=== PATIENT | female | born 1985 | race Caucasian/White ===

== ENCOUNTER 2017-03-26 13:54 | Emergency (ER) | payer OTHER ==
[2017-03-26 14:02] VITALS: BP 103/75; PULSE 76; RESP 16; TEMP 97.9; O2SAT 97
[2017-03-26] MEDS ORDERED: SODIUM CHLOR 0.9% 1000 ML INJ 1,000 ML IV ONE (14:15)
[2017-03-26] MEDS ORDERED: KETOROLAC TROMETHAMINE 30 MG/ML (IVP) VIAL IV PUSH ONE (14:15)
--- NOTE | 2017-03-26 14:20 | PD ---
HPI Chief Complaint: GI Complaint Time Seen by Provider: 14:07 Travel History International Travel<30 days: No Contact w/Intl Traveler<30days: No Traveled to known affect area: No History of Present Illness HPI This 31-year-old female says she been having some right-sided abdominal pain off and on for the last couple of days. She describes it as a dull aching pain. Seems greatest in the right flank area and is also some right upper quadrant discomfort. She does not recall having pain like this before. She has not had any dysuria. She has not had fever or chills. She had a baby about a year ago and is currently breast-feeding. She says her appetite has been diminished. She is not aware of fever. She has had a loss of appetite. She feels like her abdomen is distended. Mother has history of kidney stones and cholecystectomy. PFSH Past Medical History ?: Not LMP: IUD/POST / Social History Tobacco Use: No Allergies-Medications (Allergen,Severity, Reaction): Coded Allergies: No Known Allergies (Unverified , 03/26/17) Review of Systems General / Constitutional: No: Fever, Chills Eyes: No: Diploplia, Blurred Vision HENT: No: Headaches, Vertigo Cardiovascular: No: Chest Pain or Discomfort Respiratory: No: Cough, Shortness of Breath Gastrointestinal: Positive: Abdominal Pain, Loss of Appetite Genitourinary: Positive: Flank Pain Musculoskeletal: No: Myalgias, Arthralgias Skin: No Rash, No Itching Neurologic: No: Weakness Endocrine: No: Cold Intolerance Hematologic/Lymphatic: No: Easy Bruising Physical Exam Narrative GENERAL: Well-developed female SKIN: Focused skin assessment warm/dry. HEAD: Atraumatic. Normocephalic. EYES: Pupils equal and round. No scleral icterus. No injection or drainage. ENT: No nasal bleeding or discharge. Mucous membranes pink and moist. NECK: Trachea midline. No JVD. CARDIOVASCULAR: Regular rate and rhythm. No murmur appreciated. RESPIRATORY: No accessory muscle use. Clear to auscultation. Breath sounds equal bilaterally. GASTROINTESTINAL: Abdomen soft, there is some right upper quadrant tenderness, mild distention. Hepatic and splenic margins not palpable. Her umbilicus is quite tender There is some right CVA tenderness MUSCULOSKELETAL: No obvious deformities. No clubbing. No cyanosis. No edema. NEUROLOGICAL: Awake and alert. No obvious cranial nerve deficits. Motor grossly within normal limits. Normal speech. PSYCHIATRIC: Appropriate mood and affect; insight and judgment normal. Data Data Last Documented VS Vital Signs Date Time Temp Pulse Resp B/P (MAP) Pulse Ox O2 Delivery O2 Flow Rate FiO2 03/26/17 14:02 97.9 76 16 103/75 (84) 97 Orders Orders Complete Blood Count With Diff (03/26/17 14:14) Comprehensive Metabolic Panel (03/26/17 14:14) Lipase (03/26/17 14:14) Urinalysis - C+S If Indicated (03/26/17 14:14) Ed Urine Pregnancytest Poc (03/26/17 14:14) Sodium Chlor 0.9% 1000 Ml Inj (Ns 1000 M (03/26/17 14:15) Ketorolac Inj (Toradol Inj) (03/26/17 14:15) Urine Culture (03/26/17 14:30) Ceftriaxone Inj (Rocephin Inj) (03/26/17 15:15) Us Abdomen Gallbladder (03/26/17 15:13) Labs Laboratory Tests Test 03/26/17 14:30 03/26/17 14:50 Urine Collection Type CLEAN CATCH Urine Color STRAW Urine Turbidity CLEAR Urine pH 7.0 Urine Specific Mary [place] 1.005 Urine Protein NEG mg/dL Urine Glucose (UA) NEG mg/dL Urine Ketones NEG mg/dL Urine Occult Blood NEG Urine Nitrite NEG Urine Bilirubin NEG Urine Leukocyte Esterase LARGE Urine WBC 15-19 /hpf Urine Squamous Epithelial Cells 6-8 /hpf Urine Bacteria MANY /hpf Microscopic Urinalysis Comment CULTURE INDICATED Urine Collection Time 1430 White Blood Count 6.4 TH/MM3 Red Blood Count 4.62 MIL/MM3 Hemoglobin 13.1 GM/DL Hematocrit 39.5 % Mean Corpuscular Volume 85.7 FL Mean Corpuscular Hemoglobin 28.5 PG Mean Corpuscular Hemoglobin Concent 33.2 % Red Cell Distribution Width 12.1 % Platelet Count 232 TH/MM3 Mean Platelet Volume 8.1 FL Neutrophils (%) (Auto) 58.5 % Lymphocytes (%) (Auto) 31.9 % Monocytes (%) (Auto) 6.2 % Eosinophils (%) (Auto) 2.3 % Basophils (%) (Auto) 1.1 % Neutrophils # (Auto) 3.7 TH/MM3 Lymphocytes # (Auto) 2.1 TH/MM3 Monocytes # (Auto) 0.4 TH/MM3 Eosinophils # (Auto) 0.1 TH/MM3 Basophils # (Auto) 0.1 TH/MM3 CBC Comment DIFF FINAL Differential Comment Blood Urea Nitrogen 13 MG/DL Creatinine 0.68 MG/DL Random Glucose 69 MG/DL Total Protein 7.3 GM/DL Albumin 3.5 GM/DL Calcium Level 8.7 MG/DL Alkaline Phosphatase 114 U/L Aspartate Amino Transf (AST/SGOT) 17 U/L Alanine Aminotransferase (ALT/SGPT) 22 U/L Total Bilirubin 0.5 MG/DL Sodium Level 140 MEQ/L Potassium Level 3.6 MEQ/L Chloride Level 106 MEQ/L Carbon Dioxide Level 24.8 MEQ/L Anion Gap 9 MEQ/L Estimat Glomerular Filtration Rate 100 ML/MIN Lipase 86 U/L MDM Medical Decision Making Medical Screen Exam Complete: Yes Emergency Medical Condition: Yes Medical Record Reviewed: Yes Differential Diagnosis Differential includes cholelithiasis, cholecystitis, UTI, renal colic Narrative Course Her hemoglobin is 13 with a white count of 6.4. Urinalysis shows large leukocyte esterase with 15-19 white cells. This is consistent with urinary tract infection though the patient is not having symptoms of frequency or dysuria. Patient is complaining of some bloating and right upper quadrant and flank pain so I am going to order a ultrasound to assess for possible biliary disease. She will be given Rocephin for her urinary tract infection Diagnosis Primary Impression: Urinary tract infection Qualified Codes: N39.0 - Urinary tract infection, site not specified Chivo Mensah MD Mar 26, 2017 14:20
[2017-03-26 14:58] LABS: AUTOMATED NEUTROPHIL # 3.7 TH/MM3 (1.8-7.7); BASOPHIL # 0.1 TH/MM3 (0-0.2); BASOPHIL % 1.1 % (0.0-2.0); EOSINOPHIL # 0.1 TH/MM3 (0-0.4); EOSINOPHIL % 2.3 % (0.0-4.0); HEMATOCRIT 39.5 % (35.0-46.0); HEMOGLOBIN 13.1 GM/DL (11.6-15.3); LYMPH % 31.9 % (9.0-44.0); LYMPHOCYTE # 2.1 TH/MM3 (1.0-4.8); MEAN CELL VOLUME 85.7 FL (80.0-100.0); MEAN CORPUSCULAR HEMOGLOBIN 28.5 PG (27.0-34.0); MEAN CORPUSCULAR HGB CONC 33.2 % (32.0-36.0); MEAN PLATELET VOLUME 8.1 FL (7.0-11.0); MONO % 6.2 % (0.0-8.0); MONOCYTE # 0.4 TH/MM3 (0-0.9); NEUT % 58.5 % (16.0-70.0); PLATELET COUNT 232 TH/MM3 (150-450); RED BLOOD COUNT 4.62 MIL/MM3 (4.00-5.30); RED CELL DISTRIBUTION WIDTH 12.1 % (11.6-17.2); WHITE BLOOD COUNT 6.4 TH/MM3 (4.0-11.0)
[2017-03-26 15:01] LABS: BILIRUBIN, URINE NEG (NEG); BLOOD, URINE NEG (NEG); GLUCOSE,URINE NEG (NEG); KETONE, URINE NEG (NEG); NITRITE,URINE NEG (NEG); URINE LEUKOCYTE ESTERASE LARGE (NEG)
[2017-03-26 15:02] LABS: URINE COLOR STRAW (YELLW/STRAW)
[2017-03-26 15:05] LABS: CHLORIDE 106 MEQ/L (98-107); SODIUM (NA) 140 MEQ/L (136-145)
[2017-03-26 15:06] LABS: WBC, URINE 15-19 /hpf (0-5)
[2017-03-26 15:07] LABS: BACTERIA, URINE MANY /hpf
[2017-03-26 15:09] LABS: ALBUMIN 3.5 GM/DL (3.4-5.0); BICARBONATE 24.8 MEQ/L (21.0-32.0); BLOOD UREA NITROGEN 13 MG/DL (7-18); CALCIUM 8.7 MG/DL (8.5-10.1); GLUCOSE,RANDOM 69 MG/DL (74-106); LIPASE 86 U/L (73-393)
[2017-03-26 15:12] LABS: ALT (GPT) 22 U/L (10-53); AST (GOT) 17 U/L (15-37); CREATININE 0.68 MG/DL (0.50-1.00); GLOMERULAR FILTRATION RATE 100 ML/MIN (>89)
[2017-03-26 15:14] LABS: TOTAL BILIRUBIN ADULT 0.5 MG/DL (0.2-1.0); TOTAL PROTEIN 7.3 GM/DL (6.4-8.2)
[2017-03-26 15:15] LABS: ALKALINE PHOSPHATASE 114 U/L (45-117)
[2017-03-26] MEDS ORDERED: cefTRIAXone INJ 1,000 MG in SODIUM CHLORIDE 0.9% INJ 100 ML IV ONE (15:15)
[2017-03-26 15:56] VITALS: BP 103/64; PULSE 69; RESP 20; O2SAT 99
--- NOTE | 2017-03-26 16:30 | RADRPT ---
EXAM DATE/TIME: 03/26/2017 16:01 [facility] COMPARISON: No previous studies available for comparison. INDICATIONS : Right upper quadrant pain. MEDICAL HISTORY : Right upper quadrant pain. SURGICAL HISTORY : IUD placement. Laparoscopic pelvic surgery. ENCOUNTER: Initial ACUITY: 1 day PAIN SCORE: 7/10 LOCATION: Right upper quadrant MEASUREMENTS: LIVER: 15.5 cm length COMMON DUCT: 3 mm RIGHT KIDNEY: 10.2 x 4.5 x 3.8 cm FINDINGS: The gallbladder is intact without any evidence for gallstones, gallbladder wall thickening, or perich olecystic fluid. The visualized liver, head of the pancreas, and right kidney appear grossly intact for technique. CONCLUSION: Unremarkable study. Carlton Cortez MD on March 26, 2017 at 16:28 Board Certified Radiologist. This report was verified electronically.
--- NOTE | 2017-03-26 16:38 | PD ---
Data Data Last Documented VS Vital Signs Date Time Temp Pulse Resp B/P (MAP) Pulse Ox O2 Delivery O2 Flow Rate FiO2 03/26/17 17:00 03/26/17 15:56 69 20 99 03/26/17 14:02 97.9 Orders Orders Complete Blood Count With Diff (03/26/17 14:14) Comprehensive Metabolic Panel (03/26/17 14:14) Lipase (03/26/17 14:14) Urinalysis - C+S If Indicated (03/26/17 14:14) Ed Urine Pregnancytest Poc (03/26/17 14:14) Sodium Chlor 0.9% 1000 Ml Inj (Ns 1000 M (03/26/17 14:15) Ketorolac Inj (Toradol Inj) (03/26/17 14:15) Urine Culture (03/26/17 14:30) Ceftriaxone Inj (Rocephin Inj) (03/26/17 15:15) Us Abdomen Gallbladder (03/26/17 15:13) Ed Discharge Order (03/26/17 16:48) Labs Laboratory Tests Test 03/26/17 14:30 03/26/17 14:50 Urine Collection Type CLEAN CATCH Urine Color STRAW Urine Turbidity CLEAR Urine pH 7.0 Urine Specific Winnie 1.005 Urine Protein NEG mg/dL Urine Glucose (UA) NEG mg/dL Urine Ketones NEG mg/dL Urine Occult Blood NEG Urine Nitrite NEG Urine Bilirubin NEG Urine Leukocyte Esterase LARGE Urine WBC 15-19 /hpf Urine Squamous Epithelial Cells 6-8 /hpf Urine Bacteria MANY /hpf Microscopic Urinalysis Comment CULTURE INDICATED Urine Collection Time 1430 White Blood Count 6.4 TH/MM3 Red Blood Count 4.62 MIL/MM3 Hemoglobin 13.1 GM/DL Hematocrit 39.5 % Mean Corpuscular Volume 85.7 FL Mean Corpuscular Hemoglobin 28.5 PG Mean Corpuscular Hemoglobin Concent 33.2 % Red Cell Distribution Width 12.1 % Platelet Count 232 TH/MM3 Mean Platelet Volume 8.1 FL Neutrophils (%) (Auto) 58.5 % Lymphocytes (%) (Auto) 31.9 % Monocytes (%) (Auto) 6.2 % Eosinophils (%) (Auto) 2.3 % Basophils (%) (Auto) 1.1 % Neutrophils # (Auto) 3.7 TH/MM3 Lymphocytes # (Auto) 2.1 TH/MM3 Monocytes # (Auto) 0.4 TH/MM3 Eosinophils # (Auto) 0.1 TH/MM3 Basophils # (Auto) 0.1 TH/MM3 CBC Comment DIFF FINAL Differential Comment Blood Urea Nitrogen 13 MG/DL Creatinine 0.68 MG/DL Random Glucose 69 MG/DL Total Protein 7.3 GM/DL Albumin 3.5 GM/DL Calcium Level 8.7 MG/DL Alkaline Phosphatase 114 U/L Aspartate Amino Transf (AST/SGOT) 17 U/L Alanine Aminotransferase (ALT/SGPT) 22 U/L Total Bilirubin 0.5 MG/DL Sodium Level 140 MEQ/L Potassium Level 3.6 MEQ/L Chloride Level 106 MEQ/L Carbon Dioxide Level 24.8 MEQ/L Anion Gap 9 MEQ/L Estimat Glomerular Filtration Rate 100 ML/MIN Lipase 86 U/L MDM Supervised Visit with [facility]EDA: No Narrative Course patient care assumed from Dr. Núñez at 1600. This is a 31-year-old female presents emergency department for evaluation of periumbilical pain and right sided back pain. She does have some evidence for urinary tract infection otherwise blood work is reassuring. I was asked to follow-up ultrasound of the gallbladder disposition the patient properly. Last 24 hours Impressions Gall Bladder Ultrasound 03/26/17 1513 Signed Impressions: Service Date/Time: March 16:01 - CONCLUSION: Unremarkable study. Carlton Cortez MD My physical exam the patient is minimally tender in the periumbilical region and no other tenderness. No rebound no percussive tenderness. No CVA tenderness. Certainly her back pain could be from a retrocecal appendicitis however she's not had any nausea vomiting no fevers. I have offered her a CAT scan but at this time she would like to defer citing the risks of radiation exposure. She would like to have symptomatic management home including antibiotics and then follow up with her primary care physician. Discussed return to ED criteria. She is stable for discharge. Diagnosis Primary Impression: Urinary tract infection Qualified Codes: N39.0 - Urinary tract infection, site not specified Med/Other Pt SpecificInfo: Prescription(s) given Scripts Cephalexin (Keflex) 500 Mg Cap 500 MG PO Q6H for Infection for 7 Days, #28 CAP 0 Refills Prov: Vijay Louis MD 03/26/17 Disposition: DISCHARGE HOME Condition: Stable Vijay Louis MD Mar 26, 2017 16:38
[2017-03-26] MEDS ORDERED: CEPH-460 PO (16:48)
== END 2017-03-26 17:19 | disposition home or self-care (01) ==
LOC: PHED 13:54
DX: N39.0 Urinary tract infection, site not specified (principal)
CPT/HCPCS: 76705; 80053; 81001; 83690; 84703; 85025; 87086; 96361; 96365; 96375; 99284; J0696; J1885; J7030